=== PATIENT | female | born 1985 | race Caucasian/White ===

== ENCOUNTER 2021-03-01 02:10 | Emergency (ER) | payer OTHER ==
[2021-03-01] MEDS ORDERED: ACETAMINOPHEN 325 MG TAB PO ONE (02:30)
[2021-03-01] MEDS ORDERED: LORAZEPAM INJ 2 MG/ML VIAL IV ONE (02:30)
[2021-03-01 02:39] LABS: BASOPHILS # (AUTO) 0.1 (0.0-0.1); BASOPHILS % 0.6 % (0.0-1.0); EOSINOPHILS # (AUTO) 0.2 (0.0-0.4); EOSINOPHILS % 2.4 % (0.0-6.0); HEMATOCRIT 35.3 % (34.2-44.1); HEMOGLOBIN 10.9 g/dL (12.0-16.0); LYMPHOCYTES # (AUTO) 2.4 (1.0-3.2); LYMPHOCYTES % 30.8 % (18.0-39.1); MEAN CORPUSCULAR HEMOGLOBIN 25.6 pg (28-32); MEAN CORPUSCULAR HGB CONC 30.9 g/dL (31-35); MEAN CORPUSCULAR VOLUME 83.1 fL (81-99); MONOCYTES # (AUTO) 0.5 (0.2-0.8); MONOCYTES % 6.7 % (4.4-11.3); NEUTROPHILS # (AUTO) 4.6 (2.1-6.9); PLATELET COUNT 324 x10e3/uL (140-360); RED BLOOD COUNT 4.25 x10e6/uL (3.6-5.1); RED CELL DISTRIBUTION WIDTH 14.3 % (11.7-14.4)
[2021-03-01 02:56] LABS: ALBUMIN 2.8 g/dL (3.5-5.0); ALBUMIN/GLOBULIN RATIO 0.6 (0.8-2.0); ANION GAP 9.8 mmol/L (8-16); CALCIUM 8.7 mg/dL (8.4-10.2); CREATININE, SERUM 1.03 mg/dL (0.57-1.11); POTASSIUM 3.8 mmol/L (3.5-5.1)
[2021-03-01 03:02] LABS: CREATINE KINASE MB 1.1 ng/mL (0-5.0)
[2021-03-01] MEDS ORDERED: SODIUM CHLORIDE 0.9% 50ML 50 ML ONE (03:16)
[2021-03-01] MEDS ORDERED: IOPAMIDOL 370 MG/ML 200 ML INFUS..BTL INJ ONE (03:16)
[2021-03-01 04:19] VITALS: BP 136/81
== END 2021-03-01 05:00 | disposition home or self-care (01) ==
LOC: EDBD 02:10 → ER 02:48
DX: R07.9 Chest pain, unspecified (principal); E11.65 Type 2 diabetes mellitus with hyperglycemia; E11.40 Type 2 diabetes mellitus with diabetic neuropathy, unspecified; I10 Essential (primary) hypertension; E78.5 Hyperlipidemia, unspecified; Z20.822 Contact with and (suspected) exposure to COVID-19
CPT/HCPCS: 36415; 71260; 80053; 82550; 82553; 83880; 84484; 84702; 85025; 93005; 99284; J2060; Q9967; U0002

== ENCOUNTER 2024-05-15 01:38 | Inpatient (IN) | payer BC ==
[2024-05-15] VITALS (12 sets, daily range): BP systolic 113–136; BP diastolic 78–94; PULSE 76–99; RESP 15–26; TEMP 97.1–98.2; O2SAT 96–100
[~2024-05-15] VITALS: Ht 160 cm; Wt 138.1 kg
[~2024-05-15 01:38] MED LIST: ACETAMINOPHEN-1 EAC4 PO; AMOXICILLIN500 MG PO; CARVEDILOL3.125 MG PO; CEFDINIR300 MG PO; ELIQUIS5 MG PO; ENTRESTO 24 MG1 EACH PO; FUROSEMIDE40 MG PO; GABAPENTIN100 MG PO; LASIX20 MG PO; MECLIZINE HCL12.5 MG PO; PERCOCET 10-321 EACH PO
[2024-05-15 02:23] LABS: BASOPHILS # (AUTO) 0.1 (0.0-0.1); BASOPHILS % 0.6 % (0.0-1.0); EOSINOPHILS # (AUTO) 0.1 (0.0-0.4); EOSINOPHILS % 0.7 % (0.0-6.0); HEMATOCRIT 42.2 % (34.2-44.1); HEMOGLOBIN 14.4 g/dL (12.0-16.0); LYMPHOCYTES # (AUTO) 2.3 (1.0-3.2); LYMPHOCYTES % 20.7 % (18.0-39.1); MEAN CORPUSCULAR HEMOGLOBIN 28.5 pg (28-32); MEAN CORPUSCULAR HGB CONC 34.1 g/dL (31-35); MEAN CORPUSCULAR VOLUME 83.6 fL (81-99); MONOCYTES # (AUTO) 0.5 (0.2-0.8); MONOCYTES % 4.8 % (4.4-11.3); NEUTROPHILS # (AUTO) 8.1 (2.1-6.9); NEUTROPHILS % 72.7 % (38.7-80.0); PLATELET COUNT 346 x10e3/uL (140-360); RED BLOOD COUNT 5.05 x10e6/uL (3.6-5.1); RED CELL DISTRIBUTION WIDTH 14.5 % (11.7-14.4); WHITE BLOOD COUNT 11.11 x10e3/uL (4.8-10.8)
[2024-05-15 02:32] LABS: CORONAVIRUS COVID-19 AG NEGATIVE (NEGATIVE); INFLUENZA A AG NEGATIVE (NEGATIVE); INFLUENZA B AG NEGATIVE (NEGATIVE)
[2024-05-15] MEDS: KETOROLAC TROMETHAMINE 30 MG/ML VIAL IV STA (02:39)
[2024-05-15 02:47] LABS: ALBUMIN 3.1 g/dL (3.5-5.0); ALBUMIN/GLOBULIN RATIO 0.6 (0.8-2.0); ANION GAP 16.1 mmol/L (8-16); BILIRUBIN,TOTAL 0.7 mg/dL (0.2-1.2); CALCIUM 9.2 mg/dL (8.4-10.2); CREATININE, SERUM 1.22 mg/dL (0.57-1.11); TOTAL PROTEIN 8.1 g/dL (6.5-8.1)
[2024-05-15 02:48] LABS: POTASSIUM 3.1 mmol/L (3.5-5.1)
[2024-05-15 02:52] LABS: TROPONIN I 0.038 ng/mL (0-0.300)
[2024-05-15] MEDS ORDERED: ONDANSETRON HCL INJ 2MG/ML 2ML 2 MG/ML VIAL IV PRN (03:00)
[2024-05-15] MEDS: Morphine 2mg Syringe 2 MG/ML SYR IV PRN (04:13)
[2024-05-15] MEDS ORDERED: GABAPENTIN 100 MG CAP PO PRN (08:30)
[2024-05-15] MEDS: Doxycycline IV 100 MG in SODIUM CHLORIDE 0.9% 100 ML IV SCH (08:55)
[2024-05-15] MEDS: APIXABAN 5 MG TABLET PO SCH (08:55)
[2024-05-15] MEDS: FUROSEMIDE INJ 10 MG/ML 4 ML VIAL IV SCH (08:55)
[2024-05-15] MEDS: ALBUTEROL/IPRATROPIUM 3 ML NEB NEB PRN (10:14)
[2024-05-15] MEDS: CEPACOL SORE THROAT LOZENGES PO PRN (12:40)
[2024-05-15 12:42] LABS: TROPONIN I 0.038 ng/mL (0-0.300)
[2024-05-15 23:21] LABS: TROPONIN I 0.029 ng/mL (0-0.300)
[2024-05-16] VITALS (11 sets, daily range): BP systolic 103–128; BP diastolic 65–87; PULSE 75–89; RESP 16–18; TEMP 97.3–97.8; O2SAT 95–100
[2024-05-16 05:19] LABS: BASOPHILS # (AUTO) 0.1 (0.0-0.1); EOSINOPHILS # (AUTO) 0.2 (0.0-0.4); EOSINOPHILS % 1.4 % (0.0-6.0); HEMATOCRIT 39.9 % (34.2-44.1); HEMOGLOBIN 13.3 g/dL (12.0-16.0); LYMPHOCYTES # (AUTO) 2.3 (1.0-3.2); LYMPHOCYTES % 21.7 % (18.0-39.1); MEAN CORPUSCULAR HEMOGLOBIN 28.4 pg (28-32); MEAN CORPUSCULAR HGB CONC 33.3 g/dL (31-35); MEAN CORPUSCULAR VOLUME 85.1 fL (81-99); MONOCYTES # (AUTO) 0.7 (0.2-0.8); MONOCYTES % 6.5 % (4.4-11.3); NEUTROPHILS # (AUTO) 7.2 (2.1-6.9); NEUTROPHILS % 68.9 % (38.7-80.0); PLATELET COUNT 305 x10e3/uL (140-360); RED BLOOD COUNT 4.69 x10e6/uL (3.6-5.1); RED CELL DISTRIBUTION WIDTH 14.6 % (11.7-14.4); WHITE BLOOD COUNT 10.48 x10e3/uL (4.8-10.8)
[2024-05-16 05:46] LABS: ALBUMIN 2.9 g/dL (3.5-5.0); ALBUMIN/GLOBULIN RATIO 0.7 (0.8-2.0); ANION GAP 14.2 mmol/L (8-16); BILIRUBIN,TOTAL 0.6 mg/dL (0.2-1.2); CALCIUM 8.8 mg/dL (8.4-10.2); CREATININE, SERUM 1.18 mg/dL (0.57-1.11); POTASSIUM 3.2 mmol/L (3.5-5.1); TOTAL PROTEIN 7.3 g/dL (6.5-8.1)
[2024-05-16 06:01] LABS: CHOL/HDL RATIO 11.4 (3.0-3.6); MAGNESIUM 1.7 MG/DL (1.3-2.1)
[2024-05-16 06:09] LABS: TROPONIN I 0.031 ng/mL (0-0.300)
[2024-05-16] MEDS: METOPROLOL SUCCINATE 25 MG TAB XL PO SCH (08:59)
[2024-05-16] MEDS ORDERED: TRAMADOL HCL 50 MG TAB PO PRN (14:00)
[2024-05-16] MEDS: FUROSEMIDE 40 MG TAB PO SCH (17:50)
[2024-05-16] MEDS: ATORVASTATIN 40 MG TAB PO SCH (20:09)
[2024-05-17] VITALS (14 sets, daily range): BP systolic 109–130; BP diastolic 64–78; PULSE 81–94; RESP 16–20; TEMP 97.7–98.2; O2SAT 96–100
[2024-05-17] MEDS: Morphine 2mg Syringe 2 MG/ML SYR IV PRN (05:03)
[2024-05-17 05:10] LABS: BASOPHILS # (AUTO) 0.1 (0.0-0.1); BASOPHILS % 0.6 % (0.0-1.0); EOSINOPHILS # (AUTO) 0.1 (0.0-0.4); HEMATOCRIT 37.1 % (34.2-44.1); HEMOGLOBIN 12.3 g/dL (12.0-16.0); LYMPHOCYTES # (AUTO) 2.1 (1.0-3.2); LYMPHOCYTES % 19.1 % (18.0-39.1); MEAN CORPUSCULAR HEMOGLOBIN 28.5 pg (28-32); MEAN CORPUSCULAR HGB CONC 33.2 g/dL (31-35); MEAN CORPUSCULAR VOLUME 86.1 fL (81-99); MONOCYTES # (AUTO) 0.6 (0.2-0.8); MONOCYTES % 5.8 % (4.4-11.3); PLATELET COUNT 273 x10e3/uL (140-360); RED BLOOD COUNT 4.31 x10e6/uL (3.6-5.1); RED CELL DISTRIBUTION WIDTH 14.5 % (11.7-14.4)
[2024-05-17 05:36] LABS: ALBUMIN 2.8 g/dL (3.5-5.0); ALBUMIN/GLOBULIN RATIO 0.7 (0.8-2.0); ANION GAP 15.2 mmol/L (8-16); BILIRUBIN,TOTAL 0.6 mg/dL (0.2-1.2); CALCIUM 8.9 mg/dL (8.4-10.2); CREATININE, SERUM 1.31 mg/dL (0.57-1.11); MAGNESIUM 1.7 MG/DL (1.3-2.1); TOTAL PROTEIN 6.9 g/dL (6.5-8.1)
[2024-05-17 05:38] LABS: POTASSIUM 3.2 mmol/L (3.5-5.1)
[2024-05-17] MEDS: ALBUTEROL/IPRATROPIUM 3 ML NEB NEB SCH (07:00)
[2024-05-17] MEDS: METHYLPREDNISOLONE SOD SUCC 40 MG/ML VIAL 1ML IV SCH ×2 (08:54→20:45)
[2024-05-17] MEDS: FUROSEMIDE INJ 10 MG/ML 4 ML VIAL IV SCH (08:54)
[2024-05-17] MEDS: MONTELUKAST SODIUM 10 MG TAB PO SCH (08:56)
[2024-05-17] MEDS ORDERED: DEXTROSE 50% SYRINGE 50 ML IV PRN (15:45)
[2024-05-17] MEDS: INSULIN LISPRO 100 UNIT/1 ML 3ML VIAL SQ SCH (16:32)
[2024-05-17] MEDS: SACUBITRIL/VALSARTAN 24MG/26MG 1 EA TAB PO SCH (23:44)
[2024-05-18] VITALS (12 sets, daily range): BP systolic 98–110; BP diastolic 60–72; PULSE 73–93; RESP 16–20; TEMP 97.6–98; O2SAT 94–100
[2024-05-18] MEDS: SODIUM CHLORIDE 0.9% 250ML 250 ML ONE (00:17)
[2024-05-18 05:27] LABS: BASOPHILS % 0.2 % (0.0-1.0); EOSINOPHILS % 0.1 % (0.0-6.0); HEMATOCRIT 39.6 % (34.2-44.1); HEMOGLOBIN 13.1 g/dL (12.0-16.0); LYMPHOCYTES # (AUTO) 0.8 (1.0-3.2); LYMPHOCYTES % 5.4 % (18.0-39.1); MEAN CORPUSCULAR HEMOGLOBIN 28.5 pg (28-32); MEAN CORPUSCULAR HGB CONC 33.1 g/dL (31-35); MEAN CORPUSCULAR VOLUME 86.3 fL (81-99); MONOCYTES # (AUTO) 0.2 (0.2-0.8); MONOCYTES % 1.6 % (4.4-11.3); NEUTROPHILS # (AUTO) 13.5 (2.1-6.9); NEUTROPHILS % 92.2 % (38.7-80.0); PLATELET COUNT 275 x10e3/uL (140-360); RED BLOOD COUNT 4.59 x10e6/uL (3.6-5.1); RED CELL DISTRIBUTION WIDTH 14.5 % (11.7-14.4); WHITE BLOOD COUNT 14.64 x10e3/uL (4.8-10.8)
[2024-05-18 06:06] LABS: ALBUMIN 3.1 g/dL (3.5-5.0); ALBUMIN/GLOBULIN RATIO 0.7 (0.8-2.0); ANION GAP 17.3 mmol/L (8-16); BILIRUBIN,TOTAL 0.5 mg/dL (0.2-1.2); CALCIUM 9.6 mg/dL (8.4-10.2); CREATININE, SERUM 1.39 mg/dL (0.57-1.11); MAGNESIUM 1.7 MG/DL (1.3-2.1); TOTAL PROTEIN 7.4 g/dL (6.5-8.1)
[2024-05-18 06:07] LABS: POTASSIUM 3.3 mmol/L (3.5-5.1)
[2024-05-18] MEDS ORDERED: SODIUM CHLORIDE 0.9% 100 ML ONE (08:54)
[2024-05-18] MEDS: MAGNESIUM SULFATE 2GM/50ML 50 ML IV ONE (09:11)
[2024-05-18] MEDS: FUROSEMIDE 20 MG TAB PO SCH (09:12)
[2024-05-18] MEDS: POTASSIUM CHLORIDE 20 MEQ TAB CR PO ONE (09:13)
[2024-05-19] VITALS (10 sets, daily range): BP systolic 104–111; BP diastolic 59–69; PULSE 70–90; RESP 15–21; TEMP 97.4–97.9; O2SAT 93–100
[2024-05-19 05:27] LABS: BASOPHILS % 0.1 % (0.0-1.0); HEMATOCRIT 37.8 % (34.2-44.1); HEMOGLOBIN 12.5 g/dL (12.0-16.0); LYMPHOCYTES % 4.8 % (18.0-39.1); MEAN CORPUSCULAR HEMOGLOBIN 28.5 pg (28-32); MEAN CORPUSCULAR HGB CONC 33.1 g/dL (31-35); MEAN CORPUSCULAR VOLUME 86.1 fL (81-99); MONOCYTES # (AUTO) 0.5 (0.2-0.8); MONOCYTES % 2.2 % (4.4-11.3); NEUTROPHILS # (AUTO) 18.4 (2.1-6.9); PLATELET COUNT 285 x10e3/uL (140-360); RED BLOOD COUNT 4.39 x10e6/uL (3.6-5.1); RED CELL DISTRIBUTION WIDTH 14.6 % (11.7-14.4); WHITE BLOOD COUNT 20.05 x10e3/uL (4.8-10.8)
[2024-05-19 06:11] LABS: ALBUMIN 2.8 g/dL (3.5-5.0); ALBUMIN/GLOBULIN RATIO 0.7 (0.8-2.0); BILIRUBIN,TOTAL 0.3 mg/dL (0.2-1.2); CALCIUM 9.2 mg/dL (8.4-10.2); CREATININE, SERUM 1.16 mg/dL (0.57-1.11); MAGNESIUM 2.2 MG/DL (1.3-2.1); TOTAL PROTEIN 6.9 g/dL (6.5-8.1)
[2024-05-19 08:47] LABS: LYMPHOCYTES % (MANUAL) 4 % (19-48); MONOCYTES % (MANUAL) 1 % (3.4-9.0); NEUTROPHILS % (MANUAL) 95 % (40-74); PLATELET ESTIMATE ADEQUATE; PLATELET MORPHOLOGY COMMENT NORMAL; RBC MORPHOLOGY COMMENT NORMAL
[2024-05-19] MEDS: MUPIROCIN 2% OINT 22 GM TUBE NS SCH (09:15)
[2024-05-19] MEDS: PANTOPRAZOLE SOD 40 MG TABEC PO SCH (09:15)
[2024-05-19] MEDS: MAGNESIUM/ALUMINUM/SIMETHICONE 30 ML UDC PO PRN (11:18)
[2024-05-19] MEDS: POLYETHYLENE GLYCOL 3350 17 GM PACK PO PRN (11:18)
[2024-05-19] MEDS: ALPRAZOLAM 0.5 MG TAB PO PRN (11:25)
[2024-05-20] VITALS (14 sets, daily range): BP systolic 96–118; BP diastolic 61–75; PULSE 72–88; RESP 17–19; TEMP 97.5–97.9; O2SAT 94–99
[2024-05-20 06:42] LABS: BASOPHILS % 0.1 % (0.0-1.0); HEMATOCRIT 37.4 % (34.2-44.1); HEMOGLOBIN 12.4 g/dL (12.0-16.0); LYMPHOCYTES % 6.2 % (18.0-39.1); MEAN CORPUSCULAR HEMOGLOBIN 28.7 pg (28-32); MEAN CORPUSCULAR HGB CONC 33.2 g/dL (31-35); MEAN CORPUSCULAR VOLUME 86.6 fL (81-99); MONOCYTES # (AUTO) 0.4 (0.2-0.8); MONOCYTES % 2.5 % (4.4-11.3); NEUTROPHILS # (AUTO) 14.4 (2.1-6.9); NEUTROPHILS % 90.4 % (38.7-80.0); PLATELET COUNT 263 x10e3/uL (140-360); RED BLOOD COUNT 4.32 x10e6/uL (3.6-5.1); RED CELL DISTRIBUTION WIDTH 14.7 % (11.7-14.4); WHITE BLOOD COUNT 15.91 x10e3/uL (4.8-10.8)
[2024-05-20 07:21] LABS: ALBUMIN 2.7 g/dL (3.5-5.0); ALBUMIN/GLOBULIN RATIO 0.7 (0.8-2.0); ANION GAP 14.5 mmol/L (8-16); BILIRUBIN,TOTAL 0.3 mg/dL (0.2-1.2); CALCIUM 8.8 mg/dL (8.4-10.2); CREATININE, SERUM 1.31 mg/dL (0.57-1.11); POTASSIUM 4.5 mmol/L (3.5-5.1); TOTAL PROTEIN 6.6 g/dL (6.5-8.1)
[2024-05-21] VITALS (11 sets, daily range): BP systolic 101–119; BP diastolic 59–76; PULSE 78–85; RESP 17–20; TEMP 97.6–97.7; O2SAT 95–100
[2024-05-21] MEDS: ACETYLCYSTEINE 200 MG/ML 4 ML VIAL INH SCH (13:29)
[2024-05-22] VITALS (13 sets, daily range): BP systolic 95–133; BP diastolic 8–80; PULSE 70–100; RESP 15–24; TEMP 97.5–98; O2SAT 95–100
[2024-05-22] MEDS: METHYLPREDNISOLONE SOD SUCC 40 MG/ML VIAL 1ML IV SCH (05:50)
[2024-05-22] MEDS: KETOROLAC TROMETHAMINE 30 MG/ML VIAL IV STA (07:11)
[2024-05-22 07:14] LABS: BASOPHILS % 0.2 % (0.0-1.0); EOSINOPHILS # (AUTO) 0.1 (0.0-0.4); EOSINOPHILS % 0.3 % (0.0-6.0); HEMATOCRIT 38.8 % (34.2-44.1); HEMOGLOBIN 12.8 g/dL (12.0-16.0); LYMPHOCYTES # (AUTO) 3.3 (1.0-3.2); LYMPHOCYTES % 21.7 % (18.0-39.1); MEAN CORPUSCULAR HEMOGLOBIN 28.4 pg (28-32); MEAN CORPUSCULAR VOLUME 86.2 fL (81-99); MONOCYTES % 6.9 % (4.4-11.3); NEUTROPHILS # (AUTO) 10.5 (2.1-6.9); NEUTROPHILS % 69.4 % (38.7-80.0); PLATELET COUNT 207 x10e3/uL (140-360); RED CELL DISTRIBUTION WIDTH 14.6 % (11.7-14.4); WHITE BLOOD COUNT 15.14 x10e3/uL (4.8-10.8)
[2024-05-22 07:45] LABS: ALBUMIN 2.6 g/dL (3.5-5.0); ALBUMIN/GLOBULIN RATIO 0.8 (0.8-2.0); BILIRUBIN,TOTAL 0.3 mg/dL (0.2-1.2); CALCIUM 8.5 mg/dL (8.4-10.2); CREATININE, SERUM 1.35 mg/dL (0.57-1.11); MAGNESIUM 1.7 MG/DL (1.3-2.1); TOTAL PROTEIN 5.9 g/dL (6.5-8.1)
[2024-05-22] MEDS: SODIUM CHLORIDE FLUSH 10 ML SYR INJ PRN (17:51)
[2024-05-23] VITALS (13 sets, daily range): BP systolic 104–117; BP diastolic 61–92; PULSE 74–89; RESP 18–20; TEMP 97.6–98; O2SAT 96–100
[2024-05-23 06:36] LABS: BASOPHILS % 0.3 % (0.0-1.0); EOSINOPHILS # (AUTO) 0.2 (0.0-0.4); EOSINOPHILS % 1.4 % (0.0-6.0); HEMATOCRIT 38.6 % (34.2-44.1); HEMOGLOBIN 12.7 g/dL (12.0-16.0); LYMPHOCYTES # (AUTO) 3.3 (1.0-3.2); LYMPHOCYTES % 22.4 % (18.0-39.1); MEAN CORPUSCULAR HEMOGLOBIN 28.4 pg (28-32); MEAN CORPUSCULAR HGB CONC 32.9 g/dL (31-35); MEAN CORPUSCULAR VOLUME 86.4 fL (81-99); MONOCYTES % 6.4 % (4.4-11.3); NEUTROPHILS # (AUTO) 10.1 (2.1-6.9); NEUTROPHILS % 67.8 % (38.7-80.0); PLATELET COUNT 190 x10e3/uL (140-360); RED BLOOD COUNT 4.47 x10e6/uL (3.6-5.1); RED CELL DISTRIBUTION WIDTH 14.6 % (11.7-14.4); WHITE BLOOD COUNT 14.92 x10e3/uL (4.8-10.8)
[2024-05-23 07:46] LABS: ALBUMIN 2.7 g/dL (3.5-5.0); ALBUMIN/GLOBULIN RATIO 0.8 (0.8-2.0); ANION GAP 14.2 mmol/L (8-16); BILIRUBIN,TOTAL 0.4 mg/dL (0.2-1.2); CALCIUM 8.7 mg/dL (8.4-10.2); CREATININE, SERUM 1.45 mg/dL (0.57-1.11); POTASSIUM 4.2 mmol/L (3.5-5.1); TOTAL PROTEIN 5.9 g/dL (6.5-8.1)
[2024-05-24] VITALS (13 sets, daily range): BP systolic 110–129; BP diastolic 66–78; PULSE 72–92; RESP 15–18; TEMP 97.4–98; O2SAT 93–100
[2024-05-24] MEDS: FUROSEMIDE 20 MG TAB PO SCH (05:15)
[2024-05-24] MEDS ORDERED: ACETAMINOPHEN/CODEINE 300MG - 30MG TAB PO PRN (13:15)
[2024-05-25] VITALS (8 sets, daily range): BP systolic 119–134; BP diastolic 76–96; PULSE 80–93; RESP 16–20; TEMP 97.2–98.2; O2SAT 95–100
[2024-05-25] MEDS ORDERED: ONDANSETRON HCL 4 MG ORAL DISINTEGRATING TAB PO PRN (10:45)
[2024-05-26] MEDS ORDERED: FUROSEMIDE 20 MG TAB PO SCH (09:00)
== END 2024-05-25 16:13 | disposition home or self-care (01) | DRG 291 ==
LOC: ER 01:42 → ERHOLD 03:01 → MED/SURG 03:48
PROVIDERS: ADMIT Internal Medicine; ATTEND Internal Medicine
PROC: 4B02XTZ Measurement of Cardiac Defibrillator, External Approach (ICD-10-PCS; 2024-05-16)
PROC: 02HV33Z Insertion of Infusion Device into Superior Vena Cava, Percutaneous Approach (ICD-10-PCS; principal; 2024-05-18)
PROC: B548ZZA Ultrasonography of Superior Vena Cava, Guidance (ICD-10-PCS; 2024-05-18)
DX: I11.0 Hypertensive heart disease with heart failure (principal); I50.23 Acute on chronic systolic (congestive) heart failure; Z68.43 Body mass index [BMI] 50.0-59.9, adult; Q87.2 Congenital malformation syndromes predominantly involving limbs; N17.9 Acute kidney failure, unspecified; J44.1 Chronic obstructive pulmonary disease with (acute) exacerbation; J44.0 Chronic obstructive pulmonary disease with (acute) lower respiratory infection; I47.10 Supraventricular tachycardia, unspecified; T82.868A Thrombosis due to vascular prosthetic devices, implants and grafts, initial encounter; I82.611 Acute embolism and thrombosis of superficial veins of right upper extremity; Y92.230 Patient room in hospital as the place of occurrence of the external cause; I25.10 Atherosclerotic heart disease of native coronary artery without angina pectoris; Z95.5 Presence of coronary angioplasty implant and graft; J44.9 Chronic obstructive pulmonary disease, unspecified; J20.9 Acute bronchitis, unspecified; E11.42 Type 2 diabetes mellitus with diabetic polyneuropathy; Z79.85 Long-term (current) use of injectable non-insulin antidiabetic drugs; E87.6 Hypokalemia; E83.42 Hypomagnesemia; F12.90 Cannabis use, unspecified, uncomplicated; E66.01 Morbid (severe) obesity due to excess calories; Z71.3 Dietary counseling and surveillance; F41.9 Anxiety disorder, unspecified; R53.81 Other malaise; K21.9 Gastro-esophageal reflux disease without esophagitis; G47.33 Obstructive sleep apnea (adult) (pediatric); Z45.02 Encounter for adjustment and management of automatic implantable cardiac defibrillator; Z11.52 Encounter for screening for COVID-19; Z86.16 Personal history of COVID-19; Z86.711 Personal history of pulmonary embolism; Z86.718 Personal history of other venous thrombosis and embolism; Z85.820 Personal history of malignant melanoma of skin; Z79.899 Other long term (current) drug therapy; Z79.01 Long term (current) use of anticoagulants
CPT/HCPCS: 36415; 36569; 71045; 71046; 80053; 80061; 82550; 82948; 83036; 83690; 83735; 83880; 84484; 84702; 85025; 93005; 93306; 93971; 94799; 96372; 99284; J1885; J1940; J2270; J2405; J2470; J2919; J3475; J7050

== ENCOUNTER 2024-07-16 23:23 | Inpatient (IN) | payer BC ==
[~2024-07-16] VITALS: Ht 160 cm; Wt 108.4 kg
[2024-07-17] VITALS (11 sets, daily range): BP systolic 117–143; BP diastolic 82–103; PULSE 89–115; RESP 17–22; TEMP 97.5–98.6; O2SAT 98–100
[2024-07-17 00:30] LABS: BASOPHILS # (AUTO) 0.1 (0.0-0.1); BASOPHILS % 0.5 % (0.0-1.0); EOSINOPHILS % 0.1 % (0.0-6.0); HEMATOCRIT 44.7 % (34.2-44.1); HEMOGLOBIN 15.3 g/dL (12.0-16.0); LYMPHOCYTES # (AUTO) 1.4 (1.0-3.2); LYMPHOCYTES % 10.1 % (18.0-39.1); MEAN CORPUSCULAR HGB CONC 34.2 g/dL (31-35); MEAN CORPUSCULAR VOLUME 84.7 fL (81-99); MONOCYTES # (AUTO) 0.8 (0.2-0.8); MONOCYTES % 5.4 % (4.4-11.3); NEUTROPHILS # (AUTO) 11.9 (2.1-6.9); NEUTROPHILS % 83.5 % (38.7-80.0); PLATELET COUNT 262 x10e3/uL (140-360); RED BLOOD COUNT 5.28 x10e6/uL (3.6-5.1); RED CELL DISTRIBUTION WIDTH 14.2 % (11.7-14.4); WHITE BLOOD COUNT 14.27 x10e3/uL (4.8-10.8)
[2024-07-17 00:53] LABS: ALBUMIN 3.3 g/dL (3.5-5.0); ALBUMIN/GLOBULIN RATIO 0.8 (0.8-2.0); ANION GAP 20.3 mmol/L (8-16); BILIRUBIN,TOTAL 0.7 mg/dL (0.2-1.2); CALCIUM 9.8 mg/dL (8.4-10.2); CREATININE, SERUM 1.24 mg/dL (0.57-1.11); TOTAL PROTEIN 7.6 g/dL (6.5-8.1)
[2024-07-17 00:55] LABS: TROPONIN I 0.034 ng/mL (0-0.300)
[2024-07-17 01:05] LABS: POTASSIUM 3.3 mmol/L (3.5-5.1)
[2024-07-17] MEDS: Morphine 4mg INJECTION 4 MG/ML INJ IV ONE (01:13)
[2024-07-17] MEDS: ONDANSETRON HCL INJ 2MG/ML 2ML 2 MG/ML VIAL IV STA (01:14)
[2024-07-17] MEDS ORDERED: DEXTROSE 50% SYRINGE 50 ML IV PRN (02:30)
[2024-07-17] MEDS: SODIUM CHLORIDE 0.9% 500ML 500 ML IV ONE (02:38)
[2024-07-17] MEDS: ONDANSETRON HCL INJ 2MG/ML 2ML 2 MG/ML VIAL IV PRN (04:54)
[2024-07-17] MEDS: Morphine 4mg INJECTION 4 MG/ML INJ IV PRN (04:56)
[2024-07-17] MEDS: INSULIN REGULAR, HUMAN 100 UNIT/1 ML SQ SCH (07:30)
[2024-07-17 14:21] LABS: TROPONIN I 0.047 ng/mL (0-0.300)
[2024-07-17] MEDS: APIXABAN 5 MG TABLET PO SCH (18:01)
[2024-07-17 19:23] LABS: TROPONIN I 0.036 ng/mL (0-0.300)
[2024-07-18 03:21] VITALS: BP 128/87; PULSE 87; RESP 18; TEMP 97.9; O2SAT 98
[2024-07-18] MEDS: SODIUM CHLORIDE 0.9% 1000ML 1,000 ML IV SCH (06:22)
[2024-07-18 07:14] LABS: BASOPHILS # (AUTO) 0.1 (0.0-0.1); BASOPHILS % 0.6 % (0.0-1.0); EOSINOPHILS # (AUTO) 0.1 (0.0-0.4); EOSINOPHILS % 0.8 % (0.0-6.0); HEMATOCRIT 41.8 % (34.2-44.1); HEMOGLOBIN 13.9 g/dL (12.0-16.0); LYMPHOCYTES # (AUTO) 2.7 (1.0-3.2); LYMPHOCYTES % 20.8 % (18.0-39.1); MEAN CORPUSCULAR HEMOGLOBIN 28.8 pg (28-32); MEAN CORPUSCULAR HGB CONC 33.3 g/dL (31-35); MEAN CORPUSCULAR VOLUME 86.7 fL (81-99); MONOCYTES # (AUTO) 0.8 (0.2-0.8); MONOCYTES % 6.4 % (4.4-11.3); NEUTROPHILS # (AUTO) 9.3 (2.1-6.9); PLATELET COUNT 264 x10e3/uL (140-360); RED BLOOD COUNT 4.82 x10e6/uL (3.6-5.1); RED CELL DISTRIBUTION WIDTH 14.4 % (11.7-14.4); WHITE BLOOD COUNT 13.06 x10e3/uL (4.8-10.8)
[2024-07-18 07:27] LABS: ALBUMIN 3.2 g/dL (3.5-5.0); ALBUMIN/GLOBULIN RATIO 0.8 (0.8-2.0); ANION GAP 15.3 mmol/L (8-16); BILIRUBIN,TOTAL 0.4 mg/dL (0.2-1.2); CALCIUM 9.7 mg/dL (8.4-10.2); CREATININE, SERUM 1.36 mg/dL (0.57-1.11); TOTAL PROTEIN 7.3 g/dL (6.5-8.1)
[2024-07-18 07:28] LABS: POTASSIUM 3.3 mmol/L (3.5-5.1)
[2024-07-18 07:56] VITALS: BP 136/95; PULSE 88; RESP 20; TEMP 97.7; O2SAT 100
[2024-07-18] MEDS: LOSARTAN POTASSIUM 25 MG TAB PO SCH (08:34)
[2024-07-18] MEDS: FUROSEMIDE 40 MG TAB PO SCH (08:34)
[2024-07-18] MEDS: METOPROLOL SUCCINATE 25 MG TAB XL PO SCH (08:34)
[2024-07-18 12:18] VITALS: BP 98/65; PULSE 82; RESP 18; TEMP 98.3; O2SAT 100
[2024-07-18 16:23] VITALS: BP 136/102; PULSE 91; RESP 18; TEMP 97.7; O2SAT 100
[2024-07-18 21:00] VITALS: BP 136/102; PULSE 91; RESP 18; TEMP 97.7; O2SAT 100
[2024-07-18 21:40] VITALS: BP 104/70; PULSE 81; RESP 18; TEMP 97.7; O2SAT 100
[2024-07-19] VITALS (7 sets, daily range): BP systolic 105–131; BP diastolic 74–93; PULSE 76–91; RESP 18–20; TEMP 97.5–98; O2SAT 99–100
[2024-07-19 06:56] LABS: BILIRUBIN,URINE NEGATIVE (NEGATIVE); CLARITY,URINE SL CLOUDY (CLEAR); COLOR,URINE YELLOW (YELLOW); GLUCOSE, URINE NEGATIVE (NEGATIVE); KETONES,URINE NEGATIVE (NEGATIVE); LEUKOCYTE ESTERASE ,URINE SMALL (NEGATIVE); NITRITE,URINE NEGATIVE (NEGATIVE); PH,URINE 5.5 (5 - 7); PROTEIN,URINE DIPSTICK TRACE (NEGATIVE); URINE UROBILINOGEN 0.2 mg/dL (0.2 - 1)
[2024-07-19 07:07] LABS: BACTERIA,URINE MANY /HPF; EPITHELIAL CELLS,URINE FEW /LPF; WBC,URINE (MAN) >50 /HPF (0-5)
[2024-07-19 07:53] LABS: BASOPHILS # (AUTO) 0.1 (0.0-0.1); BASOPHILS % 0.7 % (0.0-1.0); EOSINOPHILS # (AUTO) 0.2 (0.0-0.4); EOSINOPHILS % 1.8 % (0.0-6.0); HEMATOCRIT 39.1 % (34.2-44.1); HEMOGLOBIN 12.8 g/dL (12.0-16.0); LYMPHOCYTES # (AUTO) 2.6 (1.0-3.2); LYMPHOCYTES % 23.8 % (18.0-39.1); MEAN CORPUSCULAR HEMOGLOBIN 28.6 pg (28-32); MEAN CORPUSCULAR HGB CONC 32.7 g/dL (31-35); MEAN CORPUSCULAR VOLUME 87.3 fL (81-99); MONOCYTES # (AUTO) 0.8 (0.2-0.8); MONOCYTES % 7.4 % (4.4-11.3); NEUTROPHILS # (AUTO) 7.2 (2.1-6.9); NEUTROPHILS % 65.8 % (38.7-80.0); PLATELET COUNT 246 x10e3/uL (140-360); RED BLOOD COUNT 4.48 x10e6/uL (3.6-5.1); RED CELL DISTRIBUTION WIDTH 14.3 % (11.7-14.4); WHITE BLOOD COUNT 10.87 x10e3/uL (4.8-10.8)
[2024-07-19 08:26] LABS: ALBUMIN 2.9 g/dL (3.5-5.0); ALBUMIN/GLOBULIN RATIO 0.8 (0.8-2.0); ANION GAP 14.1 mmol/L (8-16); BILIRUBIN,TOTAL 0.5 mg/dL (0.2-1.2); CALCIUM 8.8 mg/dL (8.4-10.2); CREATININE, SERUM 1.25 mg/dL (0.57-1.11); MAGNESIUM 1.8 MG/DL (1.3-2.1); TOTAL PROTEIN 6.4 g/dL (6.5-8.1)
[2024-07-19 08:29] LABS: POTASSIUM 3.1 mmol/L (3.5-5.1)
[2024-07-20] VITALS (7 sets, daily range): BP systolic 99–122; BP diastolic 58–84; PULSE 73–84; RESP 16–20; TEMP 97.4–97.9; O2SAT 97–100
[2024-07-21] VITALS (9 sets, daily range): BP systolic 99–113; BP diastolic 58–81; PULSE 68–77; RESP 17–18; TEMP 97.3–98.2; O2SAT 96–100
[2024-07-21] MEDS: METOCLOPRAMIDE HCL 10 MG/2ML VIAL IV SCH (00:03)
[2024-07-21 05:56] LABS: BASOPHILS # (AUTO) 0.1 (0.0-0.1); BASOPHILS % 0.6 % (0.0-1.0); EOSINOPHILS # (AUTO) 0.2 (0.0-0.4); EOSINOPHILS % 1.6 % (0.0-6.0); HEMATOCRIT 39.4 % (34.2-44.1); HEMOGLOBIN 12.8 g/dL (12.0-16.0); LYMPHOCYTES % 19.9 % (18.0-39.1); MEAN CORPUSCULAR HEMOGLOBIN 28.8 pg (28-32); MEAN CORPUSCULAR HGB CONC 32.5 g/dL (31-35); MEAN CORPUSCULAR VOLUME 88.5 fL (81-99); MONOCYTES # (AUTO) 0.8 (0.2-0.8); MONOCYTES % 7.8 % (4.4-11.3); NEUTROPHILS # (AUTO) 6.8 (2.1-6.9); NEUTROPHILS % 69.8 % (38.7-80.0); PLATELET COUNT 210 x10e3/uL (140-360); RED BLOOD COUNT 4.45 x10e6/uL (3.6-5.1); RED CELL DISTRIBUTION WIDTH 13.8 % (11.7-14.4); WHITE BLOOD COUNT 9.78 x10e3/uL (4.8-10.8)
[2024-07-21 06:46] LABS: ALBUMIN 2.6 g/dL (3.5-5.0); ALBUMIN/GLOBULIN RATIO 0.7 (0.8-2.0); ANION GAP 15.1 mmol/L (8-16); BILIRUBIN,TOTAL 0.7 mg/dL (0.2-1.2); CALCIUM 8.6 mg/dL (8.4-10.2); CREATININE, SERUM 1.31 mg/dL (0.57-1.11); MAGNESIUM 1.7 MG/DL (1.3-2.1); TOTAL PROTEIN 6.2 g/dL (6.5-8.1)
[2024-07-21 06:50] LABS: POTASSIUM 3.1 mmol/L (3.5-5.1)
[2024-07-22] VITALS (9 sets, daily range): BP systolic 103–130; BP diastolic 67–79; PULSE 71–79; RESP 17–18; TEMP 97.5–98.2; O2SAT 97–100
[2024-07-22] MEDS: MECLIZINE HCL 12.5 MG TAB PO ONE (00:10)
[2024-07-22] MEDS: MECLIZINE HCL 12.5 MG TAB PO SCH (05:24)
[2024-07-22] MEDS: SCOPOLAMINE 1 MG PATCH TOP SCH (05:38)
[2024-07-23 04:44] VITALS: BP 116/79; PULSE 73; RESP 18; TEMP 98.2; O2SAT 98
[2024-07-23] MEDS: MECLIZINE HCL 12.5 MG TAB PO SCH (05:37)
[2024-07-23 06:09] LABS: CLARITY,URINE CLEAR (CLEAR); COLOR,URINE YELLOW (YELLOW); PH,URINE 7 (5 - 7)
[2024-07-23 06:10] LABS: BILIRUBIN,URINE NEGATIVE (NEGATIVE); GLUCOSE, URINE NEGATIVE (NEGATIVE); KETONES,URINE NEGATIVE (NEGATIVE); LEUKOCYTE ESTERASE ,URINE LARGE (NEGATIVE); NITRITE,URINE NEGATIVE (NEGATIVE); PROTEIN,URINE DIPSTICK NEGATIVE (NEGATIVE); URINE UROBILINOGEN 0.2 mg/dL (0.2 - 1)
[2024-07-23 06:11] LABS: BASOPHILS # (AUTO) 0.1 (0.0-0.1); BASOPHILS % 0.8 % (0.0-1.0); EOSINOPHILS # (AUTO) 0.2 (0.0-0.4); EOSINOPHILS % 2.1 % (0.0-6.0); HEMOGLOBIN 13.6 g/dL (12.0-16.0); LYMPHOCYTES # (AUTO) 2.2 (1.0-3.2); LYMPHOCYTES % 20.7 % (18.0-39.1); MEAN CORPUSCULAR HEMOGLOBIN 28.5 pg (28-32); MEAN CORPUSCULAR HGB CONC 32.4 g/dL (31-35); MEAN CORPUSCULAR VOLUME 88.1 fL (81-99); MONOCYTES # (AUTO) 0.8 (0.2-0.8); MONOCYTES % 7.2 % (4.4-11.3); NEUTROPHILS # (AUTO) 7.3 (2.1-6.9); NEUTROPHILS % 68.9 % (38.7-80.0); PLATELET COUNT 215 x10e3/uL (140-360); RED BLOOD COUNT 4.77 x10e6/uL (3.6-5.1); RED CELL DISTRIBUTION WIDTH 14.2 % (11.7-14.4); WHITE BLOOD COUNT 10.56 x10e3/uL (4.8-10.8)
[2024-07-23 06:37] LABS: BACTERIA,URINE MODERATE /HPF; EPITHELIAL CELLS,URINE MANY /LPF; WBC,URINE (MAN) >50 /HPF (0-5)
[2024-07-23 07:11] LABS: ALBUMIN 2.9 g/dL (3.5-5.0); ALBUMIN/GLOBULIN RATIO 0.7 (0.8-2.0); ANION GAP 14.9 mmol/L (8-16); BILIRUBIN,TOTAL 0.8 mg/dL (0.2-1.2); CALCIUM 9.2 mg/dL (8.4-10.2); CREATININE, SERUM 1.2 mg/dL (0.57-1.11); TOTAL PROTEIN 7.1 g/dL (6.5-8.1)
[2024-07-23 07:13] LABS: POTASSIUM 2.9 mmol/L (3.5-5.1)
[2024-07-23 07:29] VITALS: BP 113/77; PULSE 77; RESP 18; TEMP 97.8; O2SAT 100
[2024-07-23 09:00] VITALS: BP 113/77; PULSE 77; RESP 18; TEMP 97.8; O2SAT 100
[2024-07-23] MEDS: POTASSIUM CHLORIDE 10MEQ EA PO ONE (10:01)
[2024-07-23 11:33] VITALS: BP 126/84; PULSE 77; RESP 18; TEMP 97.7; O2SAT 98
[2024-07-23 18:12] VITALS: BP 135/85; PULSE 84; RESP 18; TEMP 98.1; O2SAT 98
[2024-07-23 20:00] VITALS: BP 115/74; PULSE 83; RESP 18; TEMP 97.7; O2SAT 99
[2024-07-24] VITALS (8 sets, daily range): BP systolic 111–126; BP diastolic 70–86; PULSE 74–86; RESP 16–20; TEMP 97.6–98.1; O2SAT 99–100
[2024-07-24] MEDS: Morphine 4mg INJECTION 4 MG/ML INJ IV PRN (03:35)
[2024-07-24] MEDS: MEROPENEM 1 GM in SODIUM CHLORIDE 0.9% 100 ML IV SCH (05:48)
[2024-07-24 06:43] LABS: ALBUMIN 2.9 g/dL (3.5-5.0); ALBUMIN/GLOBULIN RATIO 0.8 (0.8-2.0); ANION GAP 15.8 mmol/L (8-16); BILIRUBIN,TOTAL 0.6 mg/dL (0.2-1.2); CALCIUM 8.9 mg/dL (8.4-10.2); CREATININE, SERUM 1.21 mg/dL (0.57-1.11); TOTAL PROTEIN 6.6 g/dL (6.5-8.1)
[2024-07-24 06:53] LABS: POTASSIUM 2.8 mmol/L (3.5-5.1)
[2024-07-24] MEDS: POTASSIUM CHLORIDE 20 MEQ TAB CR PO STA (07:25)
[2024-07-24] MEDS: POTASSIUM CHLORIDE 20 MEQ TAB CR PO ONE (12:30)
[2024-07-25 00:54] VITALS: BP 104/75; PULSE 74; RESP 17; TEMP 97.1; O2SAT 99
[2024-07-25 04:00] VITALS: BP 114/79; PULSE 80; RESP 18; TEMP 97.8; O2SAT 99
[2024-07-25 06:18] LABS: BASOPHILS # (AUTO) 0.1 (0.0-0.1); BASOPHILS % 0.5 % (0.0-1.0); EOSINOPHILS # (AUTO) 0.3 (0.0-0.4); HEMATOCRIT 37.9 % (34.2-44.1); HEMOGLOBIN 12.6 g/dL (12.0-16.0); LYMPHOCYTES # (AUTO) 2.2 (1.0-3.2); MEAN CORPUSCULAR HEMOGLOBIN 28.6 pg (28-32); MEAN CORPUSCULAR HGB CONC 33.2 g/dL (31-35); MEAN CORPUSCULAR VOLUME 86.1 fL (81-99); MONOCYTES # (AUTO) 0.8 (0.2-0.8); MONOCYTES % 6.8 % (4.4-11.3); NEUTROPHILS # (AUTO) 7.7 (2.1-6.9); NEUTROPHILS % 69.3 % (38.7-80.0); PLATELET COUNT 234 x10e3/uL (140-360); RED CELL DISTRIBUTION WIDTH 14.2 % (11.7-14.4); WHITE BLOOD COUNT 11.04 x10e3/uL (4.8-10.8)
[2024-07-25 06:38] LABS: ALBUMIN 2.8 g/dL (3.5-5.0); ALBUMIN/GLOBULIN RATIO 0.8 (0.8-2.0); ANION GAP 12.9 mmol/L (8-16); BILIRUBIN,TOTAL 0.6 mg/dL (0.2-1.2); CALCIUM 8.8 mg/dL (8.4-10.2); CREATININE, SERUM 1.18 mg/dL (0.57-1.11); MAGNESIUM 1.9 MG/DL (1.3-2.1); TOTAL PROTEIN 6.5 g/dL (6.5-8.1)
[2024-07-25 06:42] LABS: POTASSIUM 2.9 mmol/L (3.5-5.1)
[2024-07-25] MEDS: POTASSIUM CHLORIDE 20 MEQ TAB CR PO STA (07:44)
[2024-07-25 08:29] VITALS: BP 101/72; PULSE 77; RESP 20; TEMP 97.8; O2SAT 98
[2024-07-25 11:20] VITALS: BP 96/65; PULSE 72; RESP 19; TEMP 97.7; O2SAT 98
[2024-07-25] MEDS: POTASSIUM CHLORIDE 20 MEQ TAB CR PO SCH (12:13)
[2024-07-25] MEDS: SCOPOLAMINE 1 MG PATCH TOP ONE (12:13)
[2024-07-25 16:27] VITALS: BP 113/53; PULSE 76; RESP 19; TEMP 97.6; O2SAT 95
[2024-07-25 20:00] VITALS: BP 111/76; PULSE 84; RESP 17; TEMP 97.4; O2SAT 84
[2024-07-26] VITALS (7 sets, daily range): BP systolic 108–127; BP diastolic 71–84; PULSE 76–86; RESP 17–21; TEMP 97.4–99; O2SAT 95–100
[2024-07-26 06:02] LABS: BASOPHILS # (AUTO) 0.1 (0.0-0.1); BASOPHILS % 0.5 % (0.0-1.0); EOSINOPHILS # (AUTO) 0.2 (0.0-0.4); EOSINOPHILS % 1.8 % (0.0-6.0); HEMATOCRIT 37.3 % (34.2-44.1); HEMOGLOBIN 12.4 g/dL (12.0-16.0); LYMPHOCYTES # (AUTO) 2.2 (1.0-3.2); LYMPHOCYTES % 17.8 % (18.0-39.1); MEAN CORPUSCULAR HEMOGLOBIN 28.6 pg (28-32); MEAN CORPUSCULAR HGB CONC 33.2 g/dL (31-35); MEAN CORPUSCULAR VOLUME 85.9 fL (81-99); MONOCYTES # (AUTO) 0.9 (0.2-0.8); MONOCYTES % 7.4 % (4.4-11.3); NEUTROPHILS % 72.2 % (38.7-80.0); PLATELET COUNT 218 x10e3/uL (140-360); RED BLOOD COUNT 4.34 x10e6/uL (3.6-5.1); RED CELL DISTRIBUTION WIDTH 14.1 % (11.7-14.4)
[2024-07-26 06:26] LABS: ALBUMIN 2.6 g/dL (3.5-5.0); ALBUMIN/GLOBULIN RATIO 0.7 (0.8-2.0); ANION GAP 12.2 mmol/L (8-16); BILIRUBIN,TOTAL 0.5 mg/dL (0.2-1.2); CALCIUM 8.6 mg/dL (8.4-10.2); CREATININE, SERUM 1.11 mg/dL (0.57-1.11); MAGNESIUM 1.8 MG/DL (1.3-2.1); TOTAL PROTEIN 6.3 g/dL (6.5-8.1)
[2024-07-26 06:27] LABS: POTASSIUM 3.2 mmol/L (3.5-5.1)
[2024-07-26] MEDS: METOCLOPRAMIDE HCL 10 MG/2ML VIAL IV SCH (22:15)
[2024-07-27 05:16] VITALS: BP 112/72; PULSE 82; RESP 19; TEMP 97.8; O2SAT 100
[2024-07-27 05:20] LABS: BASOPHILS # (AUTO) 0.1 (0.0-0.1); BASOPHILS % 0.5 % (0.0-1.0); EOSINOPHILS # (AUTO) 0.3 (0.0-0.4); HEMATOCRIT 39.8 % (34.2-44.1); HEMOGLOBIN 12.7 g/dL (12.0-16.0); LYMPHOCYTES # (AUTO) 1.9 (1.0-3.2); LYMPHOCYTES % 17.1 % (18.0-39.1); MEAN CORPUSCULAR HEMOGLOBIN 28.3 pg (28-32); MEAN CORPUSCULAR HGB CONC 31.9 g/dL (31-35); MEAN CORPUSCULAR VOLUME 88.8 fL (81-99); MONOCYTES # (AUTO) 0.8 (0.2-0.8); MONOCYTES % 7.5 % (4.4-11.3); NEUTROPHILS # (AUTO) 7.9 (2.1-6.9); NEUTROPHILS % 71.6 % (38.7-80.0); PLATELET COUNT 198 x10e3/uL (140-360); RED BLOOD COUNT 4.48 x10e6/uL (3.6-5.1); RED CELL DISTRIBUTION WIDTH 14.2 % (11.7-14.4); WHITE BLOOD COUNT 10.99 x10e3/uL (4.8-10.8)
[2024-07-27 05:50] LABS: ALBUMIN 2.7 g/dL (3.5-5.0); ALBUMIN/GLOBULIN RATIO 0.8 (0.8-2.0); BILIRUBIN,TOTAL 0.7 mg/dL (0.2-1.2); CALCIUM 8.8 mg/dL (8.4-10.2); CREATININE, SERUM 1.03 mg/dL (0.57-1.11); TOTAL PROTEIN 6.3 g/dL (6.5-8.1)
[2024-07-27 08:07] VITALS: BP 101/65; PULSE 80; RESP 18; TEMP 97.7; O2SAT 100
[2024-07-27] MEDS: POTASSIUM CHLORIDE 20 MEQ TAB CR PO SCH (09:11)
[2024-07-27 11:46] VITALS: BP 113/77; PULSE 83; RESP 18; TEMP 97.6; O2SAT 98
[2024-07-27 15:34] VITALS: BP 120/85; PULSE 91; RESP 18; TEMP 97.4; O2SAT 100
[2024-07-27 20:00] VITALS: BP 122/79; PULSE 81; RESP 18; TEMP 97.5; O2SAT 99
[2024-07-27] MEDS ORDERED: DULCOLAX10 MG PR (23:24)
[2024-07-27 23:49] VITALS: BP 111/66; PULSE 85; RESP 20; TEMP 97.5; O2SAT 96
[2024-07-28] VITALS (7 sets, daily range): BP systolic 92–122; BP diastolic 60–78; PULSE 71–81; RESP 17–20; TEMP 97.7–98.6; O2SAT 95–100
[2024-07-28] MEDS: BISACODYL 5 MG TAB EC PO ONE ×3 (03:15→04:59)
[2024-07-28 05:57] LABS: BASOPHILS # (AUTO) 0.1 (0.0-0.1); BASOPHILS % 0.6 % (0.0-1.0); EOSINOPHILS # (AUTO) 0.4 (0.0-0.4); EOSINOPHILS % 4.3 % (0.0-6.0); HEMATOCRIT 37.1 % (34.2-44.1); HEMOGLOBIN 12.1 g/dL (12.0-16.0); LYMPHOCYTES # (AUTO) 1.9 (1.0-3.2); MEAN CORPUSCULAR HEMOGLOBIN 28.7 pg (28-32); MEAN CORPUSCULAR HGB CONC 32.6 g/dL (31-35); MEAN CORPUSCULAR VOLUME 88.1 fL (81-99); MONOCYTES # (AUTO) 0.8 (0.2-0.8); MONOCYTES % 7.8 % (4.4-11.3); NEUTROPHILS # (AUTO) 6.9 (2.1-6.9); NEUTROPHILS % 67.9 % (38.7-80.0); PLATELET COUNT 194 x10e3/uL (140-360); RED BLOOD COUNT 4.21 x10e6/uL (3.6-5.1); WHITE BLOOD COUNT 10.11 x10e3/uL (4.8-10.8)
[2024-07-28 06:26] LABS: ANION GAP 12.9 mmol/L (8-16); CALCIUM 8.3 mg/dL (8.4-10.2); CREATININE, SERUM 0.95 mg/dL (0.57-1.11)
[2024-07-28 06:31] LABS: POTASSIUM 2.9 mmol/L (3.5-5.1)
[2024-07-28] MEDS: Morphine 4mg INJECTION 4 MG/ML INJ IV PRN (07:04)
[2024-07-28] MEDS: POTASSIUM CHLORIDE 20 MEQ TAB CR PO ONE (09:05)
[2024-07-28] MEDS: PANTOPRAZOLE SOD 40 MG TABEC PO ONE (09:06)
[2024-07-28] MEDS: METOCLOPRAMIDE HCL 10 MG TAB PO SCH (09:06)
[2024-07-28] MEDS: BISACODYL 5 MG TAB EC PO PRN (11:25)
[2024-07-29] VITALS: BP 108/69; PULSE 73; RESP 20; TEMP 98; O2SAT 100
[2024-07-29] MEDS: POTASSIUM CHLORIDE 10MEQ EA PO STA (00:58)
[2024-07-29 04:00] VITALS: BP 93/63; PULSE 74; RESP 20; TEMP 97.8; O2SAT 97
[2024-07-29 06:41] LABS: ANION GAP 10.2 mmol/L (8-16); CALCIUM 8.4 mg/dL (8.4-10.2); CREATININE, SERUM 0.92 mg/dL (0.57-1.11)
[2024-07-29 06:47] LABS: POTASSIUM 3.2 mmol/L (3.5-5.1)
[2024-07-29 07:35] VITALS: BP 99/65; PULSE 71; RESP 17; TEMP 98.6; O2SAT 98
[2024-07-29 08:11] VITALS: BP 99/65; PULSE 71; RESP 17; TEMP 98.6; O2SAT 98
[2024-07-29 10:05] VITALS: BP 110/70; PULSE 76
[2024-07-29] MEDS ORDERED: PROTONIX40 MG PO (10:26)
[2024-07-29] MEDS ORDERED: kdur PO (10:33)
[2024-07-29] MEDS ORDERED: REGLAN10 MG PO (10:33)
[2024-07-29 11:09] VITALS: BP 118/80; PULSE 79; RESP 21; TEMP 97.6; O2SAT 99
[2024-07-29] MEDS: POTASSIUM CHLORIDE 20 MEQ TAB CR PO ONE (11:27)
== END 2024-07-29 11:55 | disposition home or self-care (01) | DRG 74 ==
LOC: ER 07-17 00:10 → ERHOLD 07-17 02:25 → MED/SURG2 07-17 04:09
PROVIDERS: ADMIT Internal Medicine; ATTEND Internal Medicine
PROC: 05HY33Z Insertion of Infusion Device into Upper Vein, Percutaneous Approach (ICD-10-PCS; principal; 2024-07-22)
DX: E11.43 Type 2 diabetes mellitus with diabetic autonomic (poly)neuropathy (principal); I13.0 Hypertensive heart and chronic kidney disease with heart failure and stage 1 through stage 4 chronic kidney disease, or unspecified chronic kidney disease; I50.22 Chronic systolic (congestive) heart failure; Q87.2 Congenital malformation syndromes predominantly involving limbs; I47.29 Other ventricular tachycardia; Z68.41 Body mass index [BMI] 40.0-44.9, adult; N39.0 Urinary tract infection, site not specified; K52.9 Noninfective gastroenteritis and colitis, unspecified; E86.0 Dehydration; E11.22 Type 2 diabetes mellitus with diabetic chronic kidney disease; N18.31 Chronic kidney disease, stage 3a; K21.9 Gastro-esophageal reflux disease without esophagitis; E66.01 Morbid (severe) obesity due to excess calories; G89.29 Other chronic pain; E87.6 Hypokalemia; I25.10 Atherosclerotic heart disease of native coronary artery without angina pectoris; R42 Dizziness and giddiness; M79.7 Fibromyalgia; K29.70 Gastritis, unspecified, without bleeding; K31.84 Gastroparesis; E78.5 Hyperlipidemia, unspecified; T38.3X5A Adverse effect of insulin and oral hypoglycemic [antidiabetic] drugs, initial encounter; Y92.009 Unspecified place in unspecified non-institutional (private) residence as the place of occurrence of the external cause; Z88.2 Allergy status to sulfonamides; Z86.718 Personal history of other venous thrombosis and embolism; Z79.01 Long term (current) use of anticoagulants; Z79.82 Long term (current) use of aspirin; Z95.810 Presence of automatic (implantable) cardiac defibrillator; Z82.49 Family history of ischemic heart disease and other diseases of the circulatory system; Z79.85 Long-term (current) use of injectable non-insulin antidiabetic drugs; Z95.5 Presence of coronary angioplasty implant and graft
CPT/HCPCS: 36415; 36568; 71045; 80048; 80053; 81001; 82550; 82948; 83690; 83735; 83880; 84484; 85025; 87086; 93005; 94799; 99284; J0696; J2185; J2270; J2405; J2470; J2765; J7030; J7040; J7050